=== PATIENT | male | born 1970 | race African-American/Black ===

== ENCOUNTER 2025-02-24 23:43 | Emergency (ER) | payer OTHER ==
[~2025-02-24] VITALS: Ht 193 cm; Wt 123.0 kg
[~2025-02-24 23:43] MED LIST: ASPI-1153 PO; IMIT50 PO
[2025-02-24] MEDS: VISCOUS LIDOCAINE 2% 15 ML UDC MM ONE (23:45)
[2025-02-24 23:49] VITALS: O2SAT 98
[2025-02-25] MEDS ORDERED: MAG355OR21 MT (01:22)
[2025-02-25] MEDS: ACETAMINOPHEN 1000MG/100ML 100 ML IV ONE (01:23)
[2025-02-25] MEDS ORDERED: ONDA4TAB50 MT (01:23)
[2025-02-25] MEDS: ONDANSETRON HCL 4MG/2ML INJ IV ONE (01:42)
[2025-02-25] MEDS: VISCOUS LIDOCAINE 2% 15 ML UDC MM NR (01:42)
[2025-02-25] MEDS: PANTOPRAZOLE SODIUM 40 MG/VIAL IV ONE (01:42)
[2025-02-25] MEDS: PANTOPRAZOLE SODIUM 40 MG/VIAL IV NR (01:42)
[2025-02-25] MEDS: MAGNESIUM/ALUMINUM HYDROXIDE/SIMETHICONE 30ML UDC PO ONE (01:42)
[2025-02-25] MEDS: ONDANSETRON HCL 4MG/2ML INJ IV NR (01:43)
[2025-02-25] MEDS: MAGNESIUM/ALUMINUM HYDROXIDE/SIMETHICONE 30ML UDC PO NR (01:43)
[2025-02-25] MEDS: AMLODIPINE 10MG TABLET PO ONE (01:43)
[2025-02-25 01:50] LABS: HEMATOCRIT. 43.0 % (42.0-52.0); HEMOGLOBIN. 14.4 g/dL (14.0-18.0); MEAN PLATELET VOLUME 8.2 fl (7.4-10.4); PLATELET 194 x1000/uL (130-400); RED BLOOD CELL COUNT 4.72 mill/uL (4.7-6.1); RED CELL DISTRIBUTION WIDTH 13.1 % (11.6-14.6)
[2025-02-25 01:56] LABS: CREATININE 1.1 mg/dL (0.6-1.3); ETHANOL BLOOD < 10 mg/dL (<10); UREA NITROGEN BLOOD 13 mg/dL (9-23)
[2025-02-25 01:57] LABS: PROTEIN TOTAL 6.9 g/dL (6.0-8.3)
[2025-02-25 01:58] LABS: ASPARTATE AMINOTRANSFERASE 23 IU/L (<34); BILIRUBIN DIRECT 0.3 mg/dL (<=3.0); BILIRUBIN TOTAL 1.2 mg/dL (0.1-1.0); TROPONIN I HIGH SENSITIVITY 10 ng/L (3.0-53)
[2025-02-25 02:07] VITALS: BP 147/95; PULSE 93; RESP 16; TEMP 36.8; O2SAT 98
[2025-02-25 07:36] LABS: LYMPHOCYTES % MANUAL 9.0 % (20.0-50.0); MONOCYTES % MANUAL 1.0 % (2.0-8.0); NEUTROPHILS % MANUAL 90.0 % (45.0-75.0); PLATELET ESTIMATE NORMAL
== END 2025-02-25 02:26 | disposition home or self-care (01) ==
LOC: ER 23:43 → CMPBEDREQ 02-25 07:48
DX: R10.13 Epigastric pain (principal); I10 Essential (primary) hypertension; Z79.899 Other long term (current) drug therapy
CPT/HCPCS: 36415; 71045; 93005; 99285; 80076; 80048; 80320; 83690; 85025; 84484; 76705; 96365; 96375; A4615; J2405; J2470; G0480; J0131